=== PATIENT | female | born 1945 | race Caucasian/White ===

== ENCOUNTER → 2023-09-07 14:20 | Outpatient (REF) | payer MEDICARE, BC, SELFPAY | LOC: HWRAD 14:20 | PROVIDERS: ATTENDING PHYSICIAN Family Medicine | DX: M25.571 Pain in right ankle and joints of right foot (principal) | CPT/HCPCS: 73610 ==

== ENCOUNTER → 2023-12-05 12:49 | Outpatient (REF) | payer MEDICARE, BC, SELFPAY | LOC: MRI 3T 12:49 | PROVIDERS: ATTENDING PHYSICIAN Obstetrics & Gynecology Gynecology; FAMILY PHYSICIAN Family Medicine | DX: R19.00 Intra-abdominal and pelvic swelling, mass and lump, unspecified site (principal) | CPT/HCPCS: 72197 ==

== ENCOUNTER → 2024-01-02 14:22 | Outpatient (REF) | payer MEDICARE, BC, SELFPAY | LOC: HWRAD 14:22 | PROVIDERS: ATTENDING PHYSICIAN Specialist; FAMILY PHYSICIAN Family Medicine | DX: Z12.6 Encounter for screening for malignant neoplasm of bladder (principal); R31.21 Asymptomatic microscopic hematuria | CPT/HCPCS: 76857 ==

== ENCOUNTER → 2025-01-20 10:28 | Outpatient (REF) | payer MEDICARE, BC, SELFPAY | LOC: MRI 3T 10:28 | PROVIDERS: ATTENDING PHYSICIAN Physical Medicine & Rehabilitation; FAMILY PHYSICIAN Family Medicine | DX: M54.16 Radiculopathy, lumbar region (principal) | CPT/HCPCS: 72148 ==